=== PATIENT | female | born 1995 | race Caucasian/White ===

== ENCOUNTER → 2018-01-02 | Outpatient (CLI) | payer OTHER | LOC: COL.RAD 07:13 | DX: N92.0 Excessive and frequent menstruation with regular cycle (principal); N94.6 Dysmenorrhea, unspecified ==

== ENCOUNTER 2021-12-28 14:55 | Outpatient (CLI) | payer OTHER ==
[~2021-12-28] VITALS: Ht 160 cm; Wt 89.1 kg
[2021-12-28 15:10] VITALS: BP 141/76; PULSE 85; TEMP 97.9
[2021-12-28 15:20] VITALS: BP 132/76; PULSE 82
[2021-12-28 15:30] VITALS: BP 132/73; PULSE 88
[2021-12-28 15:45] VITALS: BP 124/65; PULSE 79
[2021-12-28 16:00] VITALS: BP 129/68; PULSE 88
== END 2021-12-28 16:25 | disposition home or self-care (01) ==
LOC: LDRO 14:55
DX: O16.3 Unspecified maternal hypertension, third trimester (principal); Z3A.35 35 weeks gestation of pregnancy

== ENCOUNTER 2022-01-06 14:28 | Inpatient (IN) | payer OTHER ==
[~2022-01-06] VITALS: Ht 160 cm; Wt 88.6 kg
[2022-01-06] VITALS (33 sets, daily range): BP systolic 120–163; BP diastolic 60–90; PULSE 71–94; TEMP 97.8–99
--- NOTE | 2022-01-06 15:30 | NUR ---
Presents to L&D for induction of labor, as sent over from office by .
--- NOTE | 2022-01-06 15:55 | NUR ---
After noting Category I monitor strip, pit started @ 2mU/min with explanation to patient and spouse. Verbalize understanding. Deny any questions or concerns at this time.
[2022-01-06 20:57] LABS: COLLECTION METHOD CLEAN CATCH
[2022-01-06 21:07] LABS: MUCOUS Present (NOT PRESENT); PH 6 (5-8); URINE APPEARANCE Hazy (CLEAR/HAZY); URINE BACTERIA Moderate /hpf (NONE SEEN); URINE BILIRUBIN Negative (NEGATIVE); URINE BLOOD 1+ (NEGATIVE); URINE COLOR Yellow (YELLOW); URINE GLUCOSE Negative (NEGATIVE); URINE KETONE Negative (NEGATIVE); URINE LEUKOCYTE ESTERASE 2+ (NEGATIVE); URINE NITRATE Negative (NEGATIVE); URINE PROTEIN(semi-quant) Negative (NEGATIVE); URINE RBC 0-2 /hpf (0-2); URINE UROBILINOGEN Negative (NEGATIVE)
--- NOTE | 2022-01-06 22:55 | NUR ---
PT REQUESTS EPIDURAL PLACEMENT. IVF BOLUS STARTED. WILL CONTACT ANESTHESIA.
--- NOTE | 2022-01-06 23:30 | NUR ---
2323- CHARLOTTE HALLMAN IN ROOM FOR EPIDURAL PLACEMENT. PT SITTING UP AT BEDSIDE. 2329- SINGLE SHOT GIVEN BY Bj SALVADOR CRNA. PT TOLERATED WELL. 2333- REPOSITIONED IN [facility].
[2022-01-07] VITALS (39 sets, daily range): BP systolic 114–146; BP diastolic 56–82; PULSE 58–102; TEMP 97.4–98.1
--- NOTE | 2022-01-07 04:56 | NUR ---
SVE OF COMPLETE/-1. REPOSITIONED TO [facility] TO LABOR DOWN.
--- NOTE | 2022-01-07 06:35 | NUR ---
CHARLOTTE HALLMAN IN ROOM TO DOSE EPIDURAL. PT TURNED IN RIGHT LATERAL. WILL RESUME PUSHING WITH THIS NURSE IN APPROXIMATELY 10 MINUTES ONCE PT MORE COMFORTABLE.
--- NOTE | 2022-01-07 07:00 | NUR ---
0673- PT STATES SHE IS COMFORTABLE FOLLOWING DOSING OF EPIDURAL BY Bj SALVADOR, SEE ANESTHESIA RECORD. PT RESUMES PUSHING WITH THIS NURSE. 0700- DR CELESTIN IN ROOM FOR DELIVERY.
--- NOTE | 2022-01-07 07:35 | NUR ---
0731- SPONTANEOUS VAGINAL DELIVERY OF VIABLE BABY GIRL. BABY TO MOTHER'S ABDOMEN. DRIED AND STIMULATED BY MASSIEL VIEYRA. CORD CLAMPED BY DR. CELESTIN, CUT BY MOTHER. BABY CARES ASSUMED BY Rose ARBOLEDA RN. 0735- SPONTANEOUS DELIVERY OF INTACT PLACENTA. PITOCIN STARTED AT 333ML/HR PER PROTOCOL. Jasmin MENDES RN ASSUMES CARE OF PT.
--- NOTE | 2022-01-07 07:45 | NUR ---
Rests in bed, Dr. Contreras doing repair work.
--- NOTE | 2022-01-07 08:00 | NUR ---
Rests in bed, alert. Doing skin to skin with baby. Denies any needs or discomfort at this time.
--- NOTE | 2022-01-07 08:15 | NUR ---
Rests in bed, alert. Spouse at bedside. States feeling like throwing up. Head of bed up with cool wash cloth one head and chest.
--- NOTE | 2022-01-07 08:30 | NUR ---
Rests in bed, alert. States feeling nauseated at this time. Cool wash cloth given. Did not give pain medication at this time because of the nausea.
--- NOTE | 2022-01-07 08:45 | NUR ---
States had some vomiting after eating some pancakes. Medication held again.
--- NOTE | 2022-01-07 09:15 | NUR ---
Rests in bed with eyes closed. Resperations even and unlabored. Spouse at bedside.
--- NOTE | 2022-01-07 10:45 | NUR ---
Rests in bed, alert. Denies any pain at this time. States still unable to move left leg well. Let her know that we would check on her later.
--- NOTE | 2022-01-07 11:45 | NUR ---
Assits patient to wheel chair with two r.n.s Patient pivoted with right leg. Unable to get wheel chair in the bathroom. Took patient to room. Assited to bed. 1215 Straigh cath done per sterile technique. Large amount of yellow color urine noted. Rachel-care given.
--- NOTE | 2022-01-07 14:40 | NUR ---
"RN into room to check on patient, pt c/o lower back sheldon. RN checked bleeding and clot noted on perineum. RN preformed a fundal massage. Fundus firm and at the umbilicus. Large gosh of blood and clots noted with massage. Emergency light pulled and asked, Amira GUERRERO) to call for help. Pt still responsive. BP 11/69, HR. O2 saturation stable. Pt at bedside. 1441: LARA Collier; Kev, director; Jennifer, charge; RN's Shonda La Easlyn at bedside. Fundal massage continued, fundus remained firm. This RN asked responding RN's to contact Dr. Garcia and any physician in [facility]. 1442: Dr. Fuentes at bedside. VORB for stat H&H and VORB for TXA. O2 initiated via mask at 2L 1443|: 02 increase to 10 L. Patient responsive. 1445: 648 ml blood loss measured from bedpad and peripad. Steady flow of blood remains with massage. 1446: Dr. Garcia at bedside, discussed with patient needs to go to OR. Second IV site attempted by Bessie Rivera RN. 1450: Surgical and blood consent signed by patient and witnessed by this RN. 1500: Pt transferred to w/c with 4 person assist; patient wheeled to hallway to transferred to bed for transport to sugical suite. Before moving patient, patient became unresponsive. Acohol swab under nose; verbal and tactile stimulation provided. Patient alert. 4 person transfer to bed. [facility] to [facility]
--- NOTE | 2022-01-07 15:08 | NUR ---
pt assisted to bathroom with standby assist. Clean pad, mesh panties, cold pack applied.
[2022-01-08 00:45] VITALS: BP 118/69; PULSE 92; TEMP 97.8
[2022-01-08 06:21] LABS: HEMOGLOBIN 10.2 g/dl (12.5-16.0)
[2022-01-08 06:32] LABS: ALBUMIN 2.4 gm/dL (3.5-5.0); BILIRUBIN,TOTAL 0.2 mg/dL (0.2-1.2); CALCIUM 9.8 mg/dL (8.4-10.2); CREATININE, serum 0.79 mg/dL (0.57-1.11); POTASSIUM 4.5 mmol/L (3.5-4.5); TOTAL PROTEIN 5.9 gm/dL (6.2-8.1)
[2022-01-08 10:00] VITALS: BP 142/68; PULSE 101; TEMP 97.7
[2022-01-08 17:30] VITALS: BP 137/70; PULSE 77; TEMP 98.4
[2022-01-08 20:30] VITALS: BP 137/86; PULSE 74; TEMP 98
[2022-01-09 08:30] VITALS: BP 134/73; PULSE 75; TEMP 98.2
--- NOTE | 2022-01-09 16:11 | NUR ---
DR MCLEAN NOTIFIED THAT PATIENT FAILED CAR SEAT TRIAL AT AN 1HR AND 20MINUTES
[2022-01-09 17:00] VITALS: BP 136/79; PULSE 74; TEMP 98.1
== END 2022-01-09 17:00 | disposition home or self-care (01) | DRG 807 ==
LOC: LDR 14:28 → OB 01-07 11:45
PROVIDERS: ADMIT Obstetrics & Gynecology
PROC: 10E0XZZ Delivery of Products of Conception, External Approach (ICD-10-PCS; principal; 2022-01-07)
PROC: 0KQM0ZZ Repair Perineum Muscle, Open Approach (ICD-10-PCS; 2022-01-07)
PROC: 10907ZC Drainage of Amniotic Fluid, Therapeutic from Products of Conception, Via Natural or Artificial Opening (ICD-10-PCS; 2022-01-07)
DX: O13.4 Gestational [pregnancy-induced] hypertension without significant proteinuria, complicating childbirth (principal); Z37.0 Single live birth; O70.1 Second degree perineal laceration during delivery; Z3A.37 37 weeks gestation of pregnancy; Z23 Encounter for immunization
CPT/HCPCS: J2405; J2590; J7120

== ENCOUNTER 2023-07-19 14:33 | Inpatient (IN) | payer OTHER ==
[~2023-07-19] VITALS: Ht 160 cm; Wt 77.7 kg
[2023-07-19] VITALS (21 sets, daily range): BP systolic 110–143; BP diastolic 57–80; PULSE 60–96; TEMP 98.2
[2023-07-19 19:02] LABS: BASO # 0.1 K/mm3 (0.0-0.2); BASO % 0.4 % (0.0-2.0); EOS # 0.1 K/mm3 (0.0-0.7); GRAN # 7.6 K/mm3 (1.4-6.5); GRAN % 68.7 % (42.2-75.2); LYMPH # 2.2 K/mm3 (1.2-3.4); LYMPH % 20.1 % (20.0-51.0); MEAN CELL VOLUME 87 fl (80.0-100.0); MEAN CORPUSCULAR HEMOGLOBIN 28 pg (27-31); MEAN CORPUSCULAR HGB CONC 32 g/dl (33.0-37.0); MEAN PLATELET VOLUME 10.1 fl (7.4-10.4); MONO % 9.2 % (1.7-9.3); PLATELET COUNT 313 K/mm3 (130-400); RED BLOOD COUNT 3.88 M/mm3 (4.10-5.30); REDCELL DISTRIBUTION WIDTH-CV 12.9 % (11.5-14.5)
[2023-07-19 19:03] LABS: HEMATOCRIT 33.9 % (37.0-47.0)
[2023-07-19] MEDS ORDERED: MULTIPLE VITAMI1 CAP PO (19:27)
[2023-07-19] MEDS ORDERED: CEPHALEXIN500 M1 (19:29)
[2023-07-19 19:35] LABS: ALBUMIN 2.4 gm/dL (3.5-5.0); BILIRUBIN,TOTAL 0.7 mg/dL (0.2-1.2); CALCIUM 9.3 mg/dL (8.4-10.2); CREATININE, serum 0.72 mg/dL (0.57-1.11); POTASSIUM 3.7 mmol/L (3.5-4.5)
--- NOTE | 2023-07-19 21:41 | NUR ---
2140- DR. CELESTIN AT BEDSIDE. ULTRASOUND PERFORMED TO CLARIFY POSITONING. EDUCATED PATIENT ABOUT AROM. PATIENT VERBALZIES UNDERSTANDING AND AGREES TO GO AHEAD WITH AROM. 2145- SVE AND AROM BY DR. CELESTIN.
--- NOTE | 2023-07-19 23:03 | NUR ---
2237- PATIENT ASSISTED TO SIDE OF THE BED. DIFFICULTY TRACING HEART RATE DUE TO MATERNAL POSITIONING. PULSE OX APPLIED. 2240- MATILDE PORTER EXPLAINS PROCEDURE AND RISK OF EPIDURAL. 2255- TEST DOSE ADMINISTERED BY MATILDE PORTER. SEE ANESTHESIA RECORDS. 2303- PATIENT REPOSITIONED TO [facility]. PLAN OF CARE AND SAFETY PRECAUTIONS EXPLAINED TO PATIENT AND FAMILY.
[2023-07-20] VITALS (28 sets, daily range): BP systolic 98–1007; BP diastolic 45–97; PULSE 51–76; TEMP 98–98.6
--- NOTE | 2023-07-20 05:15 | NUR ---
0436- DR. CELESTIN NOTIFIED OF SVE. STATED HE WILL HEAD TO HOSPITAL FOR IMPENDING DELIVERY. 0439- GROSS REMOVED. PERICARE PROVIDED. 0450- DR. CELESTIN AT BEDSIDE. BED BROKEN DOWN FOR DELIVERY. 0456- PATIENT BEGINS PUSHING WITH CONTRACTIONS. 0504- SPONTANEOUS VAGINAL DELIVERY OF VIABLE BABY BOY. CORD CLAMPED BY DR. CELESTIN AND CUT BY MOB. BABY TO MOTHER ABDOMEN. DRIED AND STIMULATED. BABY CARES ASSUMED BY NURSERY NURSE RN. 0507- SPONTANEOUS DELIVERY OF INTACT PLACENTA THROUGH 2ND DEGREE LACERATION. PITOCIN STARTED AT 333ML/HR PER PROTOCOL. DR. CELESTIN BEGINS REPAIR OF 2ND DEGREE LACERATION. 0515- RECOVERY STARTED.
== END 2023-07-20 15:15 | disposition home or self-care (01) | DRG 807 ==
LOC: OB 14:33 → LDR 18:16 → OB 07-20 09:33
PROVIDERS: ADMIT Obstetrics & Gynecology
PROC: 10E0XZZ Delivery of Products of Conception, External Approach (ICD-10-PCS; principal; 2023-07-20)
PROC: 0KQM0ZZ Repair Perineum Muscle, Open Approach (ICD-10-PCS; 2023-07-20)
PROC: 10907ZC Drainage of Amniotic Fluid, Therapeutic from Products of Conception, Via Natural or Artificial Opening (ICD-10-PCS; 2023-07-20)
PROC: 3E033VJ Introduction of Other Hormone into Peripheral Vein, Percutaneous Approach (ICD-10-PCS; 2023-07-20)
DX: O14.94 Unspecified pre-eclampsia, complicating childbirth (principal); Z37.0 Single live birth; O70.1 Second degree perineal laceration during delivery; O99.824 Streptococcus B carrier state complicating childbirth; Z3A.36 36 weeks gestation of pregnancy
CPT/HCPCS: J2405; J2540; J2590; J2795; J7120